=== PATIENT | female | born 1995 | race Caucasian/White ===

== ENCOUNTER 2021-12-26 18:58 | Inpatient (IN) ==
[2021-12-26] MEDS ORDERED: LIDOCAINE 1% LOCAL 20 ML VIAL INFIL PRN (19:38)
[2021-12-26] MEDS ORDERED: OXYTOCIN 30 UNITS/500 ML BAG IV PRN (19:38)
--- NOTE | 2021-12-26 19:41 | History & Physical Report ---
Date of Service December 26, 2021 Assessment & Plan (1) SROM (spontaneous rupture of membranes): Plan: 26-year-old at 37 weeks 4 days gestational age with spontaneous rupture of membranes in early labor. 1. Fetus: Cat 1 2. Labor: SROM. Regular painful contractions 3. GBS negative 4. Vitals: normal (2) Normal labor: (3) : History of Present Illness Primary Care Provider: NO PCP Toyin is a 26-year-old currently at 37 weeks 4 days gestational age presents with spontaneous rupture of membranes in early labor. Patient reports rupture of membranes around 5:40 this evening with labor contractions starting shortly after rupture. has been uncomplicated to date. OB Labs: Blood Type B Negative 05/26/21 Antibody Screen NEGATIVE 10/24/21 Hemoglobin 11.8 g/dl (12.0-16.0) L 10/24/21 Hematocrit 34.7 % (34.1-44.9) 10/24/21 Mean Corpuscular Volume 93.7 fL (80-100) 05/26/21 Platelet Count 215 K/uL (130-400) 05/26/21 Rubella IgG Antibody Non Immune (Immune) L 05/26/21 Rapid Plasma Reagin Nonreactive (Nonreactive) 05/26/21 Hepatitis B Surface Antigen. NON-REACTIVE (NON-REACTIVE) 05/26/21 Hepatitis C Antibody (EIA) NON-REACTIVE (NON-REACTIVE) 05/26/21 HIV (1&2) Ag and Ab Confirmation NON-REACTIVE (NON-REACTIVE) 05/26/21 Glucose 1 Hour 50 gm Load 131 mg/dl (70-130) H 08/03/21 Maternal Serum Alpha Fetoprotein 52.9 ng/mL 08/03/21 OB Optional Labs: Chlamydia trachomatis RNA NOT DETECTED (NOT DETECTED) 05/26/21 Neisseria gonorrhoeae RNA NOT DETECTED (NOT DETECTED) 05/26/21 Alpha Fetoprotein Triple Screen SEE NOTE 08/03/21 Labs Reviewed: Declines cf/sma--mln cfdna-low risk--mln 05/26/21 labs Hep C - nonreactive Hep B - nonreactive HIV - nonreactive msafp neg--smp 2hr gtt 2nd trimester WNL--smp Allergies Allergy/AdvReac Type Severity Reaction Status Date / Time No Known Allergies Allergy Verified 12/26/21 19:20 Home Medications Medication Instructions Recorded Confirmed Type prenat.vits,jerome,jmc-[id number]-ugxxo 1 tab PO DAILY 05/18/21 12/26/21 History Patient History Medical History (Updated 12/26/21 @ 20:46 by Abdulaziz Bucio MD) Varicella vaccination Surgical History S/P dilatation and curettage Status post ORIF of fracture of ankle Family History Grandfather (Maternal) Gestational diabetes Lung cancer Throat cancer Denies family history of Ovarian cancer Breast cancer Colorectal cancer Social History Smoking Status: Never smoker Hx Alcohol Use: No Hx Substance Use: No Preferred Language: American Communication Ability: Effective Band Tier Required: No Beliefs That Will Affect Care: None marital status: marital status details: Zach Monaco (25) [phone] Current Living Situation: Spouse Current Living Situation Comment: lives with spouse, dogs current occupational status: employed 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
[2021-12-26] MEDS: LACTATED RINGER'S 1,000 ML IV PRN ×2 (19:45→20:53)
[2021-12-26 19:50] LABS: Hematocrit (blood only) 36.7 % (34.1-44.9); Mean Corpuscular Hemoglobin 32.7 pg (25.0-34.0); Mean Corpuscular Hgb Conc 35.4 g/dL (32.0-36.0); Mean Corpuscular Volume 92.4 fL (80.0-100.0); Mean Platelet Volume 11.4 fL (9.4-12.3); Platelet Count 177 K/uL (130-400); RDW Coefficient of Variation 12.9 % (11.5-14.5); RDW Standard Deviation 43.3 fL (36.4-46.3); Red Blood Count 3.97 M/uL (3.93-5.22); White Blood Count 13.63 K/ul (4.8-10.8)
[2021-12-26] MEDS ORDERED: BUPIVACAINE 0.25% 30 ML VIAL ONE (19:52)
[2021-12-26] MEDS ORDERED: fentaNYL citrate 100 MCG/2 ML VIAL ONE (19:52)
[2021-12-26] MEDS ORDERED: ePHEDrine sulfate 50 MG/ML AMP ONE (19:52)
[2021-12-26] MEDS ORDERED: SODIUM CHLORIDE 0.9% INJ 10 ML VIAL ONE (19:52)
[2021-12-26] MEDS ORDERED: LIDOCAINE 2%/EPINEPHRINE 1:200,000 20 ML SDV ONE (19:52)
[2021-12-26] MEDS ORDERED: fentaNYL 2MCG/ML ROPIVACAINE 1.25MG/ML 100 ML BAG EPI ONE (19:53)
[2021-12-26] MEDS ORDERED: ePHEDrine sulfate 50 MG/ML AMP IV PRN ×2 (20:38→21:27)
[2021-12-26] MEDS ORDERED: NALBUPHINE HCL INJ 10 MG/ML AMP IV PRN ×2 (20:38→21:27)
[2021-12-26] MEDS ORDERED: fentaNYL 2MCG/ML ROPIVACAINE 1.25MG/ML 100 ML BAG EPI PRN ×2 (20:38→21:27)
[2021-12-26] MEDS ORDERED: diphenhydrAMINE 50 MG/ML VIAL IV PRN ×2 (20:38→21:27)
[2021-12-26] MEDS ORDERED: NALOXONE HCL 0.4 MG/1 ML VIAL/CARP IV PRN ×2 (20:38→21:27)
[2021-12-26] MEDS ORDERED: NALOXONE HCL 1 MG in SODIUM CHLORIDE 0.9% 1000ML 1,000 ML IV PRN ×2 (20:38→21:27)
--- NOTE | 2021-12-26 21:04 | Anesthesiology Consultation ---
Date of Service December 26, 2021 Assessment & Plan Chart Review Chart Review: Acceptable Risk for Labor Epidural Consults Requested none History Height/Weight Height: 5 ft 10 in Weight: 99.337 kg Allergies Allergy/AdvReac Type Severity Reaction Status Date / Time No Known Allergies Allergy Verified 12/26/21 19:20 Medications Home Medications Medication Instructions Recorded Confirmed Last Taken prenat.vits,jerome,pdq-mnqx-iviff 1 tab PO DAILY 05/18/21 12/26/21 12/26/21 Active Medications Generic Name Dose Route Start Last Admin Trade Name Freq PRN Reason Stop Dose Admin Lactated Ringer's 1,000 mls @ 125 mls/hr 12/26/21 19:38 12/26/21 20:53 Lr IV 12/28/21 19:37 125 mls/hr .Q8H PRN Administration L&D Protocol Protocol Past Medical History Medical History (Updated 12/26/21 @ 20:46 by Abdulaziz Bucio MD) Varicella vaccination Past Family History Family History Grandfather (Maternal) Gestational diabetes Lung cancer Throat cancer Denies family history of Ovarian cancer Breast cancer Colorectal cancer Past Surgical History Surgical History S/P dilatation and curettage Status post ORIF of fracture of ankle Social History Smoking Status: Never smoker Hx Alcohol Use: No Hx Substance Use: No substance use type: does not use Physical Exam Vital Signs Last Vital Signs Temp 36.5 C 12/26/21 19:20 Pulse 74 12/26/21 21:00 Resp 20 12/26/21 19:20 BP 154/88 H 12/26/21 21:00 Pulse Ox 99 12/26/21 20:59 Testing Laboratory Results 12/26/21 19:42
--- NOTE | 2021-12-26 21:14 | Communication Note ---
Date of Service: December 26, 2020 Attempted epidural catheter placement in 26yo primagravida. Sitting, blending technician, local anes 1% lido to skin. At L3 - 4 space, 17g Touhy advanced, +CSF obtained. Bupiv .25% 1cc injected. Needle withdrawn. Repeat attempt at L4-5 without success. Aborted procedure. It is noted that pt denied numbness or weakness of LE's after Bupiv injection. To request colleague to attempt epidural placement.
[2021-12-26] MEDS ORDERED: ONDANSETRON INJ 2 MG/ML 2 ML VIAL IV PRN (21:27)
--- NOTE | 2021-12-26 21:27 | Communication Note ---
Date of Service: December 26, 2021 Called after completing case in OR to assist with epidural placement. My colleague had attempted x2 and had concern for possible dural puncture at the L2/3 level. He did inject a SAB dose at that level which did not seem to have any effect as would be expected if this was a dural pucture. I approached epidural space at the L2/3 level under sterile technique. Loss of resistance encountered just shy of 4cm. Of note, there was no fluid returned through the touhoy needle. Catheter passed, tested, and dosed for labor. The patient achieved comfort with contractions in about 5 minutes. I did rehab/pre vocational counselor the patient on symptoms of post dural puncture headaches and asked her to request a call to our department if she has symptoms. In addition, we will alert the funeral professional physician to evaluate her tomorrow as well. Despite this, all indications is that there was no dural puncture, and I explained to the patient that I do not expect her to be at high risk for post dural puncture headache.
--- NOTE | 2021-12-26 22:24 | Labor Progress Brief Note ---
Date of Service December 26, 2021 Subjective Reason For Note: Routine Evaluation Assessment & Plan (1) SROM (spontaneous rupture of membranes): Plan: 26-year-old at 37 weeks 4 days gestational age with spontaneous rupture of membranes in early labor. 1. Fetus: Cat 1 2. Labor: SROM. Progressing well 3. GBS negative 4. Vitals: normal (2) Normal labor: (3) : Admission and Anticipated Discharge Date Admission Date: December 26, 2021 Physical Exam Genitourinary: OB Exam Abdomen: + vertex Manual OB Exam: + cervical dilation 6 cm, + cervical effacement 80%, + station 0 and + amniotic fluid ( grossly ruptured) clear Results & Data ([facility]) Vital Signs (Past 12 Hours) Vital Signs Temp Pulse Resp BP Pulse Ox 12/26/21 19:20 36.5 C 20 12/26/21 22:21 88 12/26/21 22:21 123/64 12/26/21 22:19 100 12/26/21 22:19 86 12/26/21 22:14 99 12/26/21 22:14 75 12/26/21 22:14 16 12/26/21 22:14 36.5 C 16 12/26/21 22:09 98 12/26/21 22:09 93 H 12/26/21 22:07 82 12/26/21 22:07 136/73 12/26/21 22:04 99 12/26/21 22:04 77 12/26/21 21:59 100 12/26/21 21:59 81 12/26/21 21:54 99 12/26/21 21:54 91 H 12/26/21 21:49 97 12/26/21 21:49 87 12/26/21 21:49 86 12/26/21 21:49 121/79 12/26/21 21:46 96 H 12/26/21 21:46 133/73 12/26/21 21:44 100 12/26/21 21:44 94 H 12/26/21 21:43 81 12/26/21 21:43 129/66 12/26/21 21:39 99 12/26/21 21:39 76 12/26/21 21:39 134/74 12/26/21 21:36 76 12/26/21 21:36 144/80 H 12/26/21 21:34 100 12/26/21 21:34 81 12/26/21 21:33 77 12/26/21 21:33 144/78 H 12/26/21 21:29 99 12/26/21 21:29 73 12/26/21 21:30 76 12/26/21 21:30 145/79 H 12/26/21 21:27 75 12/26/21 21:27 143/82 H 12/26/21 21:24 98 12/26/21 21:24 75 12/26/21 21:24 145/82 H 12/26/21 21:18 18 12/26/21 21:18 18 12/26/21 21:21 16 12/26/21 21:21 16 12/26/21 21:21 78 12/26/21 21:21 143/85 H 12/26/21 21:19 100 12/26/21 21:19 76 12/26/21 21:18 73 12/26/21 21:18 148/86 H 12/26/21 21:15 73 12/26/21 21:15 147/88 H 12/26/21 21:12 18 12/26/21 21:12 18 12/26/21 21:15 18 12/26/21 21:15 36.6 C 18 12/26/21 21:14 99 12/26/21 21:14 78 12/26/21 21:12 77 12/26/21 21:12 141/92 H 12/26/21 21:09 100 12/26/21 21:09 85 12/26/21 21:09 133/82 12/26/21 20:51 20 12/26/21 20:51 20 12/26/21 20:54 20 12/26/21 20:54 20 12/26/21 21:06 83 12/26/21 21:06 135/77 12/26/21 21:04 100 12/26/21 21:04 91 H 12/26/21 21:00 74 12/26/21 21:00 154/88 H 12/26/21 20:59 99 12/26/21 20:59 91 H 12/26/21 20:58 77 12/26/21 20:58 160/91 H 12/26/21 20:54 100 12/26/21 20:54 82 12/26/21 20:54 131/77 12/26/21 20:51 80 12/26/21 20:51 135/78 12/26/21 20:49 98 12/26/21 20:49 77 12/26/21 20:44 100 12/26/21 20:44 75 12/26/21 20:39 100 12/26/21 20:39 142 H 12/26/21 20:34 99 12/26/21 20:34 90 12/26/21 20:29 99 12/26/21 20:29 89 12/26/21 20:24 98 12/26/21 20:24 80 12/26/21 20:19 100 12/26/21 20:19 76 12/26/21 20:14 98 12/26/21 20:14 86 12/26/21 20:09 98 12/26/21 20:09 81 12/26/21 20:04 100 12/26/21 20:04 96 H 12/26/21 19:59 100 12/26/21 19:59 79 12/26/21 19:54 100 12/26/21 19:54 88 12/26/21 19:49 99 12/26/21 19:49 84 12/26/21 19:17 71 130/83 Coding Level of Care Code None Diagnoses SROM (spontaneous rupture of membranes) Normal labor O80; Z37.9 Z34.90
[2021-12-27] MEDS ORDERED: FAMOTIDINE 10 MG TABLET PO ONE (00:38)
[2021-12-27] MEDS ORDERED: OXYTOCIN 30 UNITS/500 ML BAG IV PRN ×2 (01:52→06:46)
[2021-12-27] MEDS: LACTATED RINGER'S 1,000 ML IV PRN (04:17)
[2021-12-27] MEDS ORDERED: METHYLERGONOVINE MALEATE 0.2 MG/ML AMP ONE (06:39)
[2021-12-27] MEDS ORDERED: miSOPROStoL 200 MCG TAB ONE (06:40)
[2021-12-27] MEDS ORDERED: DIPHTHERIA/TETANUS/PERTUSSIS 0.5 ML SYR/VIAL IM ONE (06:46)
[2021-12-27] MEDS ORDERED: miSOPROStoL 200 MCG TAB PR ONE (06:46)
[2021-12-27] MEDS ORDERED: HYDROCORTISONE ACETATE 25 MG SUPP PR PRN (06:46)
[2021-12-27] MEDS ORDERED: METHYLERGONOVINE MALEATE 0.2 MG/ML AMP IM ONE (06:46)
[2021-12-27] MEDS ORDERED: BENZOCAINE 20% AER SPR 82.5 GM CAN EXT PRN (06:46)
--- NOTE | 2021-12-27 07:19 | Delivery Summary ---
DATE OF SERVICE: 12/27/2021. PROCEDURE: Normal spontaneous vaginal delivery with periurethral, periclitoral and small second-degr ee perineal laceration repairs. SURGEON: Abdulaziz Bucio MD. PREOPERATIVE DIAGNOSES: 1. Single intrauterine at 37 weeks 5 days gestational age. 2. Spontaneous rupture of membranes with labor. POSTOPERATIVE DIAGNOSES: 1. Single intrauterine at 37 weeks 5 days gestational age. 2. Spontaneous rupture of membranes with labor. 3. Status post procedure. ESTIMATED BLOOD LOSS: 450 mL DRAINS: Straight cath at the completion of the case. URINE OUTPUT: Per straight cath. COMPLICATIONS: None. FINDINGS: Viable with weight and Apgars pending. INDICATIONS: Toyin is a 26-year-old G1, P0 at 37 weeks, 5 days gestational age, presented with spo ntaneous rupture of membranes in early labor. The patient was initially noted to be 2.5 cm dilated, 70% effaced, negative 1 station and grossly ruptured. The patient progressed without augmentation to complete-complete, +2 station, at which time she felt the urge to push and pushed for a little over 2 hours to achieve delivery. Oxytocin was started during pushing process as contractions spaced out considerably. The patient received an epidural for anesthesia. DESCRIPTION OF PROCEDURE: The patient progressed to 10 cm dilated, 100% effaced, positive 2 station, pushed over intact perineum with epidural anesthesia, delivered a viable with weight and Apg ars pending. Head of the delivered in MARY position, restituted to right transverse. No nuch al cord was noted. Body and shoulders quickly followed. was noted to be vigorous soon after delivery and 1 minute delayed cord clamping was initiated. Cord was then double clamped and cut and remained on maternal abdomen for several minutes, but then was taken to the warmer for evalu ation. Attention was then turned to delivery of placenta, which was delivered intact, 3-vessel cord, gentle cord traction. On inspection of perineum, vagina and cervix, there was noted to be a small p eriurethral, a small periclitoral and a small second-degree perineal laceration, which were all repai red with 3-0 Vicryl. The perineal laceration was repaired with traditional crown stitch. After deli very of placenta, the patient was noted to have brisk bleeding and uterine massage was initiated, whi ch did slow the bleeding, but still was brisk than desired. The patient was given a dose of Methergi ne, which also again did help with the bleeding and did return to a more stable level as expected. A n 800 mcg of Cytotec were also placed per rectum. The uterine bleeding was managed prior to the lace ration repairs. Needle, sponge, and instrument counts were correct at the completion of the case wit h mother and stable in the immediate post-delivery period. Job ID: [id number]
--- NOTE | 2021-12-27 07:35 | Anesthesia Procedure Note ---
Date of Service December 27, 2021 Anesthesia Post Epidural Note Vital Signs Vital Signs: Temp Pulse Resp BP Pulse Ox 36.7 C 97 H 18 132/75 97 12/27/21 06:59 12/27/21 07:29 12/27/21 07:29 12/27/21 07:29 12/27/21 06:44 Pain Intensity Bilateral Pelvic: Pain Intensity: 10 Notes Mental Status: alert / awake / arousable and participated in evaluation Nausea / Vomiting: adequately controlled Pain: adequately controlled Airway Patency, RR, SpO2: stable & adequate BP & HR: stable & adequate Hydration State: stable & adequate Neuraxial Anesthesia: was administered and sensory block is resolving Anesthetic Complications: no major complications apparent Epidural: Removed without complications and With tip intact
[2021-12-27] MEDS: FERROUS SULFATE 325 MG TAB PO SCH (08:01)
[2021-12-27] MEDS: DOCUSATE SODIUM 100 MG CAP PO SCH ×2 (08:01→20:23)
[2021-12-27] MEDS: IBUPROFEN 600 MG TAB PO PRN ×3 (08:01→20:22)
[2021-12-27] MEDS: PRENATAL VITAMIN 1 TAB PO SCH (08:01)
[2021-12-27] MEDS: ACETAMINOPHEN 325 MG TAB PO PRN ×2 (12:12→19:32)
--- NOTE | 2021-12-27 18:23 | Communication Note ---
Date of Service: December 27, 2021 Asked to see patient for potential postdural puncture headache - okay when supine - severe pain down into neck when up and about - was told it was a pos sibility after her epidural was placed - she is comfortable in bed now - spoke with her about potential blood patch and that effectiveness is better after at least 24 hours - since she is fine while lying down and is planning to rest all night she would like to wait until morning and then be reevaluated.
[2021-12-28] MEDS: IBUPROFEN 600 MG TAB PO PRN ×2 (03:49→08:49)
[2021-12-28] MEDS: ACETAMINOPHEN 325 MG TAB PO PRN (03:50)
--- NOTE | 2021-12-28 05:52 | Obstetrical Progress Note ---
Date of Service <Eileen Sears MD - Last Filed: 12/28/21 07:25> December 28, 2021 Assessment & Plan <Eileen Sears MD - Last Filed: 12/28/21 07:25> (1) care following vaginal delivery: 26 y/o female PPD1 . GBS neg. B -. Rubella non-immune. Satisfactory post progress. Tolerating PO. Encourage ambulation. Cleared from an OB perspective - f/u in office in 6 weeks. <Sandra Nur MD, FACOG - Last Filed: 12/28/21 07:28> (1) care following vaginal delivery: Subjective <Eileen Sears MD - Last Filed: 12/28/21 07:25> Ambulation: ambulating normally Voiding: no voiding problems Passing Gas:: Yes Diet Tolerance:: regular diet Lochia:: Small Feeding Type:: bottle feeding no f/c/SOB/CP/calf pain Physical Exam <Eileen Sears MD - Last Filed: 12/28/21 07:25> Constitutional WD/WN, vitals as above Respiratory normal respiratory effort, lungs clear to auscultation Cardiovascular RRR, no murmur, no edema Extremities: no calf tenderness Psychiatric A+Ox3, euthymic affect Genitourinary OB Exam Abdomen: + fundal height (@ the level of the umbilicus) Fundus: + firm Results & Data ([facility]) <Eileen Sears MD - Last Filed: 12/28/21 07:25> Vital Signs (Past 12 Hours) Vital Signs Temp Pulse Resp BP O2 Del Method 12/28/21 03:40 36.4 C L 71 16 108/68 Room Air 12/27/21 23:40 36.4 C L 76 18 112/73 Room Air 12/27/21 20:45 36.6 C 78 16 121/74 Room Air <Sandra Nur MD, FACOG - Last Filed: 12/28/21 07:28> Co-Signing Physician Notes Resident Physician Supervision Note: I interviewed and examined the patient. Discussed with Dr. Sears and agree with findings and plan as documented in the note. Any exceptions or clarifications are listed here: Doing well. CASILLAS much better this am. Declined blood patch last night. Discussed that if casillas returns, would recommend patch. If happens at home, to call and will go to the ED. d/c instructions given. Documented By: Sandra Nur MD, FACOG Resident Activity Tracking <Eileen Sears MD - Last Filed: 12/28/21 07:25> Resident Involvement: Resident Care Provided Care Provided: OB Delivery
[2021-12-28] MEDS ORDERED: MEASLES, MUMPS & RUBELLA VIRUS VIAL SQ ONE (07:31)
[2021-12-28 07:33] LABS: Hematocrit (blood only) 31.9 % (34.1-44.9); Hemoglobin 11.1 g/dl (12.0-16.0); Mean Corpuscular Hemoglobin 32.2 pg (25.0-34.0); Mean Corpuscular Hgb Conc 34.8 g/dL (32.0-36.0); Mean Corpuscular Volume 92.5 fL (80.0-100.0); Mean Platelet Volume 10.7 fL (9.4-12.3); Platelet Count 172 K/uL (130-400); RDW Coefficient of Variation 13.2 % (11.5-14.5); RDW Standard Deviation 44.3 fL (36.4-46.3); Red Blood Count 3.45 M/uL (3.93-5.22); White Blood Count 12.87 K/ul (4.8-10.8)
[2021-12-28] MEDS: DOCUSATE SODIUM 100 MG CAP PO SCH (08:48)
[2021-12-28] MEDS: PRENATAL VITAMIN 1 TAB PO SCH (08:49)
[2021-12-28] MEDS: FERROUS SULFATE 325 MG TAB PO SCH (08:49)
[2021-12-28] MEDS ORDERED: bisacodyL 5 MG TABEC PO SCH (20:00)
[2021-12-29] MEDS ORDERED: bisacodyL 10 MG SUPP PR PRN (06:46)
== END 2021-12-28 11:15 | disposition home or self-care (01) | DRG 807 ==
LOC: OPB 18:58 → 4S1 19:01 → 4E2 12-27 09:34